=== PATIENT | male | born 1955 | race Two or more races ===

== ENCOUNTER 2016-12-03 05:46 | Day surgery (SDC) | payer BC ==
[2016-11-30 17:01] VITALS: BMI 34.2
[2016-12-03] VITALS (13 sets, daily range): BP systolic 119–152; BP diastolic 70–95; PULSE 80–86; RESP 16–28; Ht 175.3 cm; Wt 101.1 kg
[~2016-12-03] VITALS: Ht 175.3 cm; Wt 101.1 kg
[2016-12-03] MEDS ORDERED: BUPIVACAINE 0.25%/EPI (SDV) 30 ML INJ ONE (06:55)
[2016-12-03] MEDS ORDERED: CEFAZOLIN 2 GM/50 ML (PMX) 50 ML IVPB SCH (07:00)
[2016-12-03] MEDS ORDERED: AMLO-147 PO (07:05)
[2016-12-03] MEDS ORDERED: PROPOFOL 20 ML ONE (07:34)
[2016-12-03] MEDS ORDERED: ROCURONIUM 50 MG INJ ONE (07:34)
[2016-12-03] MEDS ORDERED: FENTAnyl 50 MCG/ML VIAL ONE (07:34)
[2016-12-03] MEDS ORDERED: MIDAZOLAM 1 MG/ML 2 ML INJ ONE (07:34)
--- NOTE | 2016-12-03 07:35 | HPN ---
Date/Time of Note Date/Time of Note DATE: 12/03/16 TIME: 07:35 Interval H&P Admission Note Pt. seen H&P reviewed: No system changes ANAM BURDEN MD Dec 03, 2016 07:35
[2016-12-03] MEDS ORDERED: ROPIVACAINE 0.5 % 30 ML VIAL ONE (07:38)
[2016-12-03] MEDS ORDERED: CEFAZOLIN 1 GM INJ ONE (07:58)
[2016-12-03] MEDS ORDERED: ONDANSETRON 4 MG INJ ONE (08:06)
[2016-12-03] MEDS ORDERED: FAMOTIDINE 20 MG INJ ONE (08:06)
[2016-12-03] MEDS ORDERED: DEXAMETHASONE 4 MG/ML 1 ML INJ ONE (08:06)
[2016-12-03] MEDS ORDERED: HYDROmorphONE 2 MG/ML SYG ONE (08:07)
[2016-12-03] MEDS ORDERED: BUPIVACAINE 0.25%/EPI (SDV) 30 ML INJ INJ ONE (08:10)
[2016-12-03] MEDS ORDERED: PHENYLephrine (100 MCG/ML) 5ML SYG ONE (08:11)
[2016-12-03] MEDS ORDERED: POLYMYXIN/BACITRACIN 1L IRRIG ONE (08:11)
[2016-12-03] MEDS ORDERED: POLYMYXIN/BACITRACIN 1L IRRIG IRR ONE (08:15)
[2016-12-03] MEDS ORDERED: LABETALOL HCL 20MG INJ ONE (08:33)
[2016-12-03] MEDS ORDERED: GLYCOPYRROLATE 0.4 MG INJ ONE (08:57)
[2016-12-03] MEDS ORDERED: NEOSTIGMINE 3 MG/3 ML SYRINGE ONE (08:57)
[2016-12-03] MEDS ORDERED: ONDANSETRON 4 MG INJ IV PRN ×2 (09:00→09:30)
[2016-12-03] MEDS ORDERED: hydrALAzine 20 MG INJ IV PRN (09:00)
[2016-12-03] MEDS ORDERED: MEPERIDINE 25 MG INJ IV PRN (09:00)
[2016-12-03] MEDS ORDERED: HYDROmorphONE (0.2 MG/ML) 10ML SYG IV PRN ×2 (09:00)
--- NOTE | 2016-12-03 09:17 | OPR ---
Date/Time of Note Date/Time of Note DATE: 12/03/16 TIME: 09:07 Operative Report Procedure Date: Dec 03, 2016 Preoperative Diagnosis Ventral hernia without obstruction or gangrene Postoperative Diagnosis Ventral hernia without obstruction or gangrene Operation Performed Laparoscopic ventral hernia repair with mesh Surgeon: AANM BURDEN MD Anesthesia: general Anesthesiologist: EDWIGE FARFAN DO Estimated Blood Loss: minimal Specimens Hernia sac Complications: None Pt Condition Post Procedure: stable Disposition: PACU Indications The patient is an obese 60-year-old male who presents to the office complaining of a painful supraumbilical bulge. The patient was diagnosed on physical exam as having a ventral hernia. CT scan which was performed showed fat contents within the hernia. Given the patient's discomfort he was scheduled for elective laparoscopic ventral hernia repair with mesh to prevent further sequelae of hernia disease, which include but are not limited to: Incarceration and strangulation. All risks and benefits of the procedure including, but not limited to: Wound infection, excessive bleeding, postoperative seroma/hematoma formation, hernia recurrence, mesh complications, chronic pain, conversion to open procedure, etc. were all explained to the patient in full detail. The patient was advised to lose weight and was informed of the increased risk of hernia recurrence in obesity. He understood all of the above and wished to proceed with the procedure. Informed consent was obtained. Operative Findings There were 2 hernia defects identified a more superior one measuring approximately 4 cm and an inferior one was approximately 1 cm. Both hernias contained incarcerated omentum. Procedure Description The patient was brought to the operating room and placed supine on the operating table. Bilateral sequential compression devices were placed on both lower extremities. A dose of broad-spectrum perioperative intravenous antibiotics was given. After the induction of smooth general endotracheal anesthesia the patient's abdomen was prepped and draped in standard surgical fashion. After performance of the surgical timeout a 5 mm incision was made in the left subcostal area and a Veress needle was used to access the intra- abdominal cavity atraumatically. Pneumoperitoneum was then obtained and the Veress needle was exchanged for a 5 mm trocar through which a 5 mm 30 laparoscope was placed. Two further working ports were placed, a 12 mm port in the anterior axillary line at the level of the umbilicus and another 5 mm port in the left iliac fossa. All port sites were anesthetized with 0.25% Marcaine with epinephrine prior to incision. Diagnostic laparoscopy showed two hernia defects, a more superior one measuring approximately 4 cm located about 12 cm from the umbilicus and an inferior one of approximately 1 cm. Both hernias contained incarcerated omentum. The falciform ligament was also within the larger hernia defect. Using atraumatic graspers and the laparoscopic loni the hernia contents were reduced back into the peritoneal cavity. The hernia sac of the larger hernia defect was everted. I tried to excise much of the sac as I could. The falciform ligament was taken down to provide adequate room for deployment of the mesh. With the hernia completely reduced a piece of 10 x 15 cm Covidien Symbotex mesh was used to repair the hernia defects. The mesh was large enough to cover both hernia defects with adequate overlap. The mesh was soaked in antibiotic irrigation prior to insertion into the field. A marking suture was placed in the middle of the mesh. Using an 11 blade scalpel a small cong was made in between the 2 hernia defects and with the suture passer the suture was delivered anchoring the mesh against the anterior abdominal wall. The mesh was then secured in place using a secure strap tacker and a double crown fashion. Pneumoperitoneum was decreased to 10 mmHg during the tacking of the mesh. With the repair complete it was inspected and noted to be hemostatic and tension-free. At this point an EndoClose device was used to close the fascia of the 12 mm port site with 0 Vicryl suture. Pneumoperitoneum was then released and all remaining trochars were withdrawn under direct vision. Subcutaneous tissues were irrigated with more antibiotic containing irrigation. The skin of the incision sites were then reapproximated using 4-0 Monocryl sutures in subcuticular fashion. The incisions were cleaned and Dermabond was applied as well as an abdominal binder. The patient was then awoken from anesthesia and transported to the recovery room in stable condition. All counts were correct at the end of the case 2. ANAM BURDEN MD Dec 03, 2016 09:17
[2016-12-03] MEDS ORDERED: OXYCODONE/ACETAMINOPHEN (5/325) TAB PO PRN ×2 (09:30)
[2016-12-03] MEDS ORDERED: morphine 10 MG INJ IV PRN (09:30)
[2016-12-03] MEDS ORDERED: KETOROLAC 30 MG INJ IV PRN (09:30)
[2016-12-03] MEDS ORDERED: IBUPROFEN 600 MG TAB PO PRN (12:00)
== END 2016-12-03 11:36 | disposition home or self-care (01) ==
LOC: EDSEX 05:46 → SDS 05:46
PROVIDERS: ATTEND Surgery
DX: K43.9 Ventral hernia without obstruction or gangrene (principal)
CPT/HCPCS: 49652; 88302; J0360; J0690; J1100; J1170; J2250; J2370; J2405; J2710; J3010; J2795